=== PATIENT | female | born 1990 | race Caucasian/White ===

== ENCOUNTER 2019-08-21 22:26 | Emergency (ER) | payer OTHER ==
[2019-08-21 22:45] VITALS: BMI 29.8
[2019-08-21 23:21] VITALS: TEMP 98.1
--- NOTE | 2019-08-21 23:50 | PDOC ---
History of Present Illness - General Chief Complaint: Shortness of Breath Stated Complaint: S.O.B Time Seen by Provider: 08/21/19 22:49 History Source: Patient Exam Limitations: Language Barrier - History of Present Illness Initial Comments: 08/23/19 06:38 HPI: 29F w/o PMH presenting with 1 week of episodic sob and palpitations that occur with light activity (playing w/ her children) and resolve on their own. Coming into ED today because symptoms lasted longer than usual. Pt unable to exactly quantify the length of symptoms but state they last minutes. Was seen by her PCP regarding these symptoms 2 days ago, lab work sent off, and was told she would receive a call if any pertinent labs. Endorses chills today. Denies fevers , lightheadedness, dizziness, numbness, tingling, weakness, n/v. Recently received IM control. No OCP, no surgeries, no recent immobilization, no travel, no calf pain or swelling, and no hx VTE. Past History - Past Medical History Allergies/Adverse Reactions: Allergies Allergy/AdvReac Type Severity Reaction Status Date / Time No Known Allergies Allergy Verified 08/21/19 22:45 Home Medications: Ambulatory Orders NK [No Known Home Medication] 08/21/19 COPD: No Other medical history: pt denies - Psycho Social/Smoking Cessation Hx Smoking History: Never smoked Hx Alcohol Use: No Drug/Substance Use Hx: No Review of Systems - Review of Systems Able to Perform ROS?: Yes Comments:: 08/23/19 06:38 ROS: CONSTITUTIONAL: Denies F / C HEENT: Denies headache, lightheadedness, dizziness, changes in vision / hearing. RESP: Endorses SOB (CC). Denies cough CARD: Endorses palpitations. Denies chest pain GI: Endorses mild loss of appetite. Denies N / V / D, abdominal pain, inability to tolerate PO : Denies dysuria, frequency SKIN: Denies rashes NEURO: Denies numbness, tingling, weakness Is the patient limited Irish proficient: Yes *Physical Exam - Vital Signs Last Vital Signs Temp Pulse Resp BP Pulse Ox 98.1 F 92 H 20 116/68 100 08/21/19 23:20 08/21/19 23:20 08/21/19 22:35 08/21/19 23:20 08/21/19 23:20 - Physical Exam Comments: 08/23/19 06:38 PE: GEN: Well appearing, NAD, comfortable. AAOx3 HEENT: NC/AT, EOMI, PERRLA. No facial asymmetry. Moist mucous membranes. Normal voice. Supple neck w/ FROM CV: S1/S2, RRR, no m/r/g LUNG: CTAB, no wheezes, crackles, rales, rhonchi GI: soft, ndnt, +BS, no guarding, no rebound. No masses EXTREMITIES: No LE edema. No calf TTP. No obvious deformities of all extremities SKIN: warm, dry, normal turgor PSYCH: normal mood and affect NEURO: Moving all extremities well ED Treatment Course - LABORATORY CBC & Chemistry Diagram: 08/21/19 23:45 08/21/19 23:45 Medical Decision Making - Medical Decision Making 08/21/19 23:44 MDM: 29F c/o occasional sob and palpitations for 1 week. Currently asymptomatic, SaO2 100% RA. DDx - pAF, pSVT, Unlikely VTE. - CBC, CMP, TSH, - EKG - CXR 08/22/19 01:07 EKG 08/21/19 23:57 HR 88 VA 136 QTS 86 QTc 454 NSR labs reviewed, reassuring f/u CXR 08/22/19 02:07 CXR per ED team w/o pathology discharge home w/ PCP f/u Discharge - Discharge Information Problems reviewed: Yes Clinical Impression/Diagnosis: Palpitations Condition: Stable Disposition: HOME - Admission No - Follow up/Referral - Patient Discharge Instructions Patient Printed Discharge Instructions: DI for Palpitations Additional Instructions: You were seen in the Emergency Department. Your lab work, EKG, and chest x-ray did not indicate a medical emergency for your symptoms. Follow up with your Primary Care Doctor in the next 2-3 days regarding this ED visit. Immediately return to the Emergency Department if you experience any of the following: - worsening symptoms - chest pain - ANYTHING that concerns you Te vieron en el departamento de emergencias. Alas trabajo de laboratorio, electrocardiograma y radiografa de trax no indicaron brittney emergencia mdica para etelvina sntomas. Reuben un seguimiento con alas mdico de atencin primaria en los prximos 2-3 bowen con respecto a esta visita al [place]. Regrese de inmediato al Departamento de emergencias si experimenta alguno de los siguientes sntomas: - empeoramiento de los sntomas - Dolor de pecho - CUALQUIER COSA que te preocupe - Post Discharge Activity
[2019-08-22 00:19] LABS: BASO % 0.4 % (0-2.0); EOS % 0.4 % (0-4.5); HEMATOCRIT 36.6 % (32.4-45.2); HEMOGLOBIN 12.4 GM/dL (10.7-15.3); LYMPH % 25.9 % (8-40); MCH 28.4 pg (25.7-33.7); MCHC 33.9 g/dl (32.0-36.0); MEAN PLT VOLUME 8.2 fl (7.5-11.1); MONO % 7.5 % (3.8-10.2); NEUT % 65.8 % (42.8-82.8); PLATELET COUNT 303 K/MM3 (134-434); RBC 4.35 M/mm3 (3.60-5.2); RDW 13.9 % (11.6-15.6); WHITE BLOOD COUNT 11.1 K/mm3 (4.0-10.0)
[2019-08-22 00:25] LABS: EPI CELLS 16.9 /HPF (0-5/HPF); HYALINE CASTS 15 /lpf (0-8); PH,URINE 5.5 (5.0-8.0); URINE APPEARANCE CLOUDY; URINE BACTERIA 337.2 /hpf (NEGATIVE); URINE BILIRUBIN NEGATIVE (NEGATIVE); URINE COLOR YELLOW; URINE GLUCOSE (UA) NEGATIVE (NEGATIVE); URINE KETONE TRACE (NEGATIVE); URINE LEUK ESTERASE NEGATIVE (NEGATIVE); URINE NITRITE NEGATIVE (NEGATIVE); URINE PROTEIN TRACE (NEGATIVE); URINE RBC 6 /hpf (0-4); URINE WBC 9 /hpf (0-5)
[2019-08-22 00:41] LABS: BILIRUBIN,TOTAL 1.1 mg/dL (0.2-1); BLOOD UREA NITROGEN 12.9 mg/dL (7-18); CALCIUM 8.4 mg/dL (8.5-10.1); CREATININE 0.8 mg/dL (0.55-1.3); POTASSIUM 3.9 mmol/L (3.5-5.1); TOT PROT 7.7 g/dl (6.4-8.2)
--- NOTE | 2019-08-22 01:43 | PDOC ---
Documentation entered by Adina Fisher SCRIBE, acting as scribe for Pierre Sparrow MD. Pierre Sparrow MD: This documentation has been prepared by the karenibePhillip Lincy, SCRIBE, under my direction and personally reviewed by me in its entirety. I confirm that the documentation accurately reflects all work, treatment, procedures, and medical decision making performed by me. Attending Attestation - Resident Resident Name: Baljeet Krishna - ED Attending Attestation I have performed the following: I have examined & evaluated the patient, The case was reviewed & discussed with the resident, I agree w/resident's findings & plan, Exceptions are as noted - HPI HPI: 08/21/19 23:47 The patient is a 29-year-old female with no reported past medical history who presents to the emergency department with shortness of breath, palpitations, and chills for the past half hour. The patient reports the symptoms have been ongoing for the past week, decided to come in today because the symptoms lasted longer than before. The patient reports following up with PCP for the symptoms, where she had blood work done. The patient reports the office told her they would call if any Lab values were abnormal, denies receiving a call. The patient reports a recent Depo- progesterone control injection. Denies chest pain, nausea, vomiting. Allergies: NKDA - Physicial Exam PE: 08/22/19 01:41 You mind documented once or once patient is awake and alert, well-nourished, no distress normocephalic and atraumatic PERRLA, EOMI CTA no JVD RRR No lower extremity edema - Medical Decision Making 08/22/19 01:42 Patient is a 29-year-old female who presents with signs and symptoms of intermittent palpitations and shortness of breath that have now resolved. In the ER, patient is noted to be asymptomatic with normal stable vital signs. EKG reveals no evidence or signs of acute ischemia or dysrhythmia. CBC/CMP within normal limits. TSH is within normal limits. Chest x-ray reveals no evidence of infiltrate or effusion. At this time, patient is safe for outpatient follow-up with cardiology for further evaluation and treatment.
[2019-08-22 02:20] VITALS: BP 105/65; PULSE 89
--- NOTE | 2019-08-22 10:50 | EKG ---
Test Reason : Blood Pressure : / mmHG Vent. Rate : 088 BPM Atrial Rate : 088 BPM P-R Int : 136 ms QRS Dur : 086 ms QT Int : 376 ms P-R-T Axes : 070 046 041 degrees QTc Int : 454 ms NORMAL SINUS RHYTHM NORMAL ECG NO PREVIOUS ECGS AVAILABLE Confirmed by EAMON MARTINEZ MD ([id number]) on 08/22/2019 10:50:22 AM Referred By: Confirmed By:EAMON MARTINEZ MD
== END 2019-08-22 02:21 | disposition home or self-care (01) ==
LOC: JER 22:26
DX: R00.2 Palpitations (principal)
CPT/HCPCS: 36415; 71046-TC-FY; 80053; 81003; 84439; 84443; 84703; 85025; 87077; 87086; 93005; 93010; 99284-25

== ENCOUNTER 2022-07-23 12:49 | Emergency (ER) | payer OTHER ==
[2022-07-23 13:05] VITALS: BP 129/85; PULSE 88; RESP 20; TEMP 98.6; BMI 30.9
[2022-07-23] MEDS ORDERED: SODIUM CHLORIDE 0.9% 500 ML INFUS.BAG IV ONE (13:34)
[2022-07-23] MEDS ORDERED: METOCLOPRAMIDE HCL INJECTION 10 MG/2 ML VIAL IVPUSH ONE (13:34)
[2022-07-23] MEDS ORDERED: ACETAMINOPHEN 1000 MG/100 ML BAG IVPB ONE (13:37)
[2022-07-23] MEDS ORDERED: ACETAMINOPHEN INJECTION 100 ML IVPB ONE (13:59)
[2022-07-23] MEDS ORDERED: METOCLOPRAMIDE HCL INJECTION 10 MG/2 ML VIAL ONE (13:59)
[2022-07-23 16:07] LABS: URINE APPEARANCE CLEAR; URINE BILIRUBIN NEGATIVE (NEGATIVE); URINE COLOR YELLOW; URINE GLUCOSE (UA) NEGATIVE (NEGATIVE); URINE KETONE NEGATIVE (NEGATIVE); URINE LEUK ESTERASE NEGATIVE (NEGATIVE); URINE NITRITE NEGATIVE (NEGATIVE); URINE PROTEIN NEGATIVE (NEGATIVE); URINE UROBILINOGEN 0.2 mg/dL (0.2-1.0)
[2022-07-23 16:09] LABS: HCG,QUALITATIVE URINE Negative
== END 2022-07-23 15:52 | disposition home or self-care (01) ==
LOC: JER 12:49
PROC: 3E033GC Introduction of Other Therapeutic Substance into Peripheral Vein, Percutaneous Approach (ICD-10-PCS; principal; 2022-07-23)
DX: J32.9 Chronic sinusitis, unspecified (principal)
CPT/HCPCS: 70450-TC; 70486-TC; 81003; 84703; 99285-25

== ENCOUNTER 2022-10-11 21:20 | Emergency (ER) | payer OTHER ==
[2022-10-11 21:34] VITALS: BP 124/77; PULSE 90; RESP 18; TEMP 98.1; BMI 34.2
[2022-10-11] MEDS ORDERED: MAG HYDROX/AL HYDROX/SIMETH -MYLANTA- ORAL SUSPENSION PO ONE (22:18)
[2022-10-11] MEDS ORDERED: IBUPROFEN 600 MG TABLET (FP) PO ONE ×2 (22:18→22:21)
[2022-10-11] MEDS ORDERED: MAG HYDROX/AL HYDROX/SIMETH 30 ML UNIT-DOSE CUP ONE (22:22)
== END 2022-10-11 23:21 | disposition home or self-care (01) ==
LOC: JER 21:20
DX: R07.89 Other chest pain (principal); K21.9 Gastro-esophageal reflux disease without esophagitis
CPT/HCPCS: 71046-TC-FY; 93005; 93010; 99284-25

== ENCOUNTER 2023-10-17 08:20 | Inpatient (IN) | payer OTHER ==
[2023-10-17] MEDS ORDERED: ELECTROLYTE-148 SOLN 1,000 ML IV SCH (08:45)
[2023-10-17 09:16] LABS: BASO % 0.3 % (0-2.0); EOS % 0.2 % (0-4.5); HEMATOCRIT 36.5 % (32.4-45.2); HEMOGLOBIN 12.1 GM/dL (10.7-15.3); LYMPH % 35.8 % (8-40); MCH 27.8 pg (25.7-33.7); MCHC 33.3 g/dl (32.0-36.0); MEAN CELL VOLUME 83.5 fl (80-96); MEAN PLT VOLUME 10.2 fl (7.5-11.1); MONO % 4.4 % (3.8-10.2); NEUT % 59.3 % (42.8-82.8); PLATELET COUNT 153 10^3/uL (134-434); RBC 4.37 M/mm3 (3.60-5.2); RDW 15.4 % (11.6-15.6); WHITE BLOOD COUNT 8.4 K/mm3 (4.0-10.0)
[2023-10-17 09:25] LABS: INR 1.01 (0.83-1.09); PROTHROMBIN TIME (PATIENT) 11.7 SEC (9.7-13.0)
[2023-10-17 09:35] LABS: POTASSIUM 3.7 mmol/L (3.5-5.1)
[2023-10-17 09:37] LABS: BLOOD UREA NITROGEN 5.5 mg/dL (7-18)
[2023-10-17 09:40] LABS: CREATININE 0.5 mg/dL (0.55-1.3)
[2023-10-17 10:13] VITALS: BMI 32.3
[2023-10-17] MEDS ORDERED: OXYTOCIN 30 UNITS in 0.9% NS 30 UNIT/500 ML INFUS.BAG IVPB SCH (10:15)
[2023-10-17] MEDS ORDERED: FENTANYL/BUPIVACAINE/NS/PF - PCEA - 50 ML DISP.SYRIN EP ONE ×3 (11:54→20:55)
[2023-10-17] MEDS ORDERED: FENTANYL/BUPIVACAINE/NS/PF - PCEA - 50 ML DISP.SYRIN EP SCH (12:20)
[2023-10-17] MEDS ORDERED: NALOXONE HCL 0.4 MG/ML VIAL IVPUSH PRN (12:36)
[2023-10-17] MEDS: FENTANYL/BUPIVACAINE/NS/PF - PCEA - 50 ML DISP.SYRIN EP SCH ×2 (17:15→20:55)
[2023-10-17] MEDS ORDERED: OXYTOCIN 20 UNITS in 0.9% NS 20 UNIT/1,000 ML INFUS.BAG IV ONE (19:19)
[2023-10-17] MEDS ORDERED: LIDOCAINE HCL/PF 2% SDV 5ML VIAL ONE ×2 (20:28→21:58)
[2023-10-17] MEDS ORDERED: FENTANYL CITRATE/PF 50 MCG/ML VIAL ONE ×2 (20:28→21:57)
[2023-10-17] MEDS ORDERED: SODIUM CHLORIDE 0.9% P/F 10 ML VIAL IJ ONE ×2 (20:28→21:58)
[2023-10-17] MEDS ORDERED: morphine SULFATE/PF 1 MG/2 ML (2cc Syringe - QUVA) ONE (21:57)
[2023-10-17] MEDS ORDERED: OXYTOCIN 10 UNITS/ML VIAL ONE (21:58)
[2023-10-17] MEDS ORDERED: DEXAMETHASONE SOD PHOSPHATE 4 MG/1 ML VIAL ONE (21:58)
[2023-10-17] MEDS ORDERED: ONDANSETRON 4 MG/2 ML VIAL ONE (21:58)
[2023-10-17] MEDS ORDERED: METOCLOPRAMIDE HCL INJECTION 10 MG/2 ML VIAL ONE (21:58)
[2023-10-17] MEDS ORDERED: KETOROLAC TROMETHAMINE 30 MG/1 ML VIAL ONE (21:58)
[2023-10-17] MEDS ORDERED: ceFAZolin SODIUM 1 GM VIAL ONE (21:58)
[2023-10-17] MEDS ORDERED: EPINEPHrine/PF 1 MG/1 ML (1:1,000) AMPULE ONE (21:58)
[2023-10-17] MEDS: OXYTOCIN 20 UNITS in 0.9% NS 20 UNIT/1,000 ML INFUS.BAG IV SCH (22:40)
[2023-10-17] MEDS ORDERED: ACETAMINOPHEN 1000 MG/100 ML BAG IVPB PRN (23:24)
[2023-10-17] MEDS ORDERED: IBUPROFEN 800 MG/8 ML IJ IVPB PRN (23:24)
[2023-10-18] MEDS ORDERED: METHYLERGONOVINE MALEATE 0.2 MG/1 ML AMP IM PRN (00:09)
[2023-10-18] MEDS ORDERED: ACETAMINOPHEN 325 MG TABLET (FP) PO PRN (00:09)
[2023-10-18] MEDS: OXYTOCIN 20 UNITS in 0.9% NS 20 UNIT/1,000 ML INFUS.BAG IV SCH (06:05)
[2023-10-18] MEDS: PRENATAL VITAMINS W/ FOLIC ACID TABLET (FP) PO SCH (09:50)
[2023-10-18] MEDS ORDERED: oxyCODONE HCL 5 MG TABLET PO PRN (12:09)
[2023-10-18] MEDS: SIMETHICONE 80 MG TAB.CHEW (FP) PO PRN (18:10)
[2023-10-18] MEDS: IBUPROFEN 600 MG TABLET (FP) PO PRN (19:38)
[2023-10-19] MEDS ORDERED: BISACODYL 10 MG SUPP.RECT RC PRN (00:09)
[2023-10-19] MEDS: IBUPROFEN 600 MG TABLET (FP) PO PRN ×4 (04:54→20:49)
[2023-10-19] MEDS: SIMETHICONE 80 MG TAB.CHEW (FP) PO PRN ×4 (04:54→20:49)
[2023-10-19 08:46] LABS: BASO % 0.2 % (0-2.0); HEMATOCRIT 25.6 % (32.4-45.2); HEMOGLOBIN 8.6 GM/dL (10.7-15.3); LYMPH % 25.2 % (8-40); MCH 28.3 pg (25.7-33.7); MCHC 33.4 g/dl (32.0-36.0); MEAN CELL VOLUME 84.6 fl (80-96); MEAN PLT VOLUME 9.5 fl (7.5-11.1); NEUT % 67.6 % (42.8-82.8); PLATELET COUNT 142 10^3/uL (134-434); RBC 3.03 M/mm3 (3.60-5.2); RDW 15.5 % (11.6-15.6); WHITE BLOOD COUNT 11.5 K/mm3 (4.0-10.0)
[2023-10-19] MEDS: PRENATAL VITAMINS W/ FOLIC ACID TABLET (FP) PO SCH (10:33)
[2023-10-20] MEDS: SIMETHICONE 80 MG TAB.CHEW (FP) PO PRN (05:12)
[2023-10-20] MEDS: IBUPROFEN 600 MG TABLET (FP) PO PRN ×2 (05:12→09:23)
[2023-10-20] MEDS: PRENATAL VITAMINS W/ FOLIC ACID TABLET (FP) PO SCH (09:23)
[2023-10-20 12:06] VITALS: BP 110/69; PULSE 90; RESP 16; TEMP 98.8
== END 2023-10-20 12:45 | disposition home or self-care (01) | DRG 540 ==
LOC: JLDR 08:20 → J3W 10-18 02:26
PROVIDERS: ADMIT Obstetrics & Gynecology; ATTEND Obstetrics & Gynecology
PROC: 10D00Z1 Extraction of Products of Conception, Low, Open Approach (ICD-10-PCS; principal; 2023-10-17)
PROC: 10907ZC Drainage of Amniotic Fluid, Therapeutic from Products of Conception, Via Natural or Artificial Opening (ICD-10-PCS; 2023-10-17)
DX: O62.1 Secondary uterine inertia (principal); O48.0 Post-term pregnancy; O61.1 Failed instrumental induction of labor; Z3A.41 41 weeks gestation of pregnancy; Z37.0 Single live birth; Z86.59 Personal history of other mental and behavioral disorders
CPT/HCPCS: 36415; 80048; 85025; 85610; 85730; 86780; 86850; 86900; 86901; 88307-TC

== ENCOUNTER 2023-11-11 17:33 | Emergency (ER) | payer OTHER ==
[2023-11-11 17:49] VITALS: TEMP 98.1; BMI 32.8
[2023-11-11 18:37] LABS: BASO % 0.5 % (0-2.0); EOS % 0.7 % (0-4.5); HEMATOCRIT 35.2 % (32.4-45.2); LYMPH % 42.3 % (8-40); MCH 27.6 pg (25.7-33.7); MEAN CELL VOLUME 81.3 fl (80-96); MEAN PLT VOLUME 7.8 fl (7.5-11.1); MONO % 5.8 % (3.8-10.2); NEUT % 50.7 % (42.8-82.8); PLATELET COUNT 319 10^3/uL (134-434); RBC 4.33 M/mm3 (3.60-5.2); RDW 14.9 % (11.6-15.6); WHITE BLOOD COUNT 7.4 K/mm3 (4.0-10.0)
[2023-11-11 18:43] LABS: EPI CELLS 18 /uL (0-25.1); HYALINE CASTS 0 /uL (0-3.1); URINE APPEARANCE CLEAR; URINE BACTERIA 72 /uL (0-1359); URINE BILIRUBIN NEGATIVE (NEGATIVE); URINE COLOR YELLOW; URINE GLUCOSE (UA) NEGATIVE (NEGATIVE); URINE KETONE NEGATIVE (NEGATIVE); URINE LEUK ESTERASE TRACE (NEGATIVE); URINE NITRITE NEGATIVE (NEGATIVE); URINE PROTEIN NEGATIVE (NEGATIVE); URINE RBC 10 /uL (0-23.9); URINE UROBILINOGEN 0.2 mg/dL (0.2-1.0); URINE WBC 13 /uL (0-25.8)
[2023-11-11 18:51] LABS: HCG,QUALITATIVE URINE Negative
[2023-11-11 18:57] LABS: POTASSIUM 3.9 mmol/L (3.5-5.1)
[2023-11-11 18:59] LABS: ALBUMIN 3.7 g/dl (3.4-5.0); BLOOD UREA NITROGEN 12.8 mg/dL (7-18); CALCIUM 8.4 mg/dL (8.5-10.1)
[2023-11-11 19:02] LABS: CREATININE 0.6 mg/dL (0.55-1.3)
[2023-11-11 19:04] LABS: BILIRUBIN,TOTAL 0.7 mg/dL (0.2-1); TOT PROT 7.7 g/dl (6.4-8.2)
[2023-11-11] MEDS ORDERED: ACETAMINOPHEN 1000 MG/100 ML BAG IVPB ONE (20:00)
[2023-11-11] MEDS ORDERED: SODIUM CHLORIDE 0.9% 500 ML INFUS.BAG IV ONE (20:00)
[2023-11-11] MEDS ORDERED: MAG HYDROX/AL HYDROX/SIMETH 30 ML UNIT-DOSE CUP PO ONE (20:02)
[2023-11-11] MEDS ORDERED: FAMOTIDINE 20 MG TABLET PO ONE (20:02)
[2023-11-11] MEDS ORDERED: ACETAMINOPHEN INJECTION 100 ML IVPB ONE (20:09)
[2023-11-11] MEDS ORDERED: MAG HYDROX/AL HYDROX/SIMETH 30 ML UNIT-DOSE CUP ONE (20:09)
[2023-11-11] MEDS ORDERED: FAMOTIDINE 20 MG TABLET ONE (20:09)
[2023-11-12 00:17] VITALS: BP 152/86; PULSE 62; RESP 16
== END 2023-11-12 00:24 | disposition home or self-care (01) ==
LOC: JER 17:33
PROC: 3E033NZ Introduction of Analgesics, Hypnotics, Sedatives into Peripheral Vein, Percutaneous Approach (ICD-10-PCS; principal; 2023-11-11)
DX: M54.6 Pain in thoracic spine (principal); R10.13 Epigastric pain
CPT/HCPCS: 36415; 74177-TC; 80053; 81003; 83690; 84703; 85025; 87086; 99285-25; J0131; Q9967

== ENCOUNTER 2024-04-01 04:17 | Day surgery (SDC) | payer OTHER ==
[2024-03-29 17:20] VITALS: BMI 34.0
[2024-04-01] MEDS ORDERED: ONDANSETRON 4 MG/2 ML VIAL ONE (07:29)
[2024-04-01] MEDS ORDERED: ROCURONIUM BROMIDE 50 MG/5 ML SYRINGE ONE (07:29)
[2024-04-01] MEDS ORDERED: DEXAMETHASONE SOD PHOSPHATE 4 MG/1 ML VIAL ONE (07:29)
[2024-04-01] MEDS ORDERED: KETOROLAC TROMETHAMINE 30 MG/1 ML VIAL ONE (07:29)
[2024-04-01] MEDS ORDERED: LIDOCAINE HCL/PF 2% SDV 5ML VIAL ONE (07:29)
[2024-04-01] MEDS ORDERED: BUPIVACAINE HCL/PF 0.5% (5MG/ML) 10 ML VIAL ONE (07:31)
[2024-04-01] MEDS ORDERED: PROPOFOL 20 ML ONE ×2 (07:33→08:21)
[2024-04-01] MEDS ORDERED: oxyCODONE HCL 5 MG TABLET PO PRN (07:57)
[2024-04-01] MEDS ORDERED: ONDANSETRON 4 MG/2 ML VIAL IVPUSH PRN (07:57)
[2024-04-01] MEDS ORDERED: LACTATED RINGERS SOLUTION 1,000 ML IV SCH (08:00)
[2024-04-01] MEDS ORDERED: ACETAMINOPHEN INJECTION 100 ML IVPB ONE (08:07)
[2024-04-01] MEDS ORDERED: MIDAZOLAM HCL 2 MG/2 ML SINGLE DOSE VIAL ONE (08:10)
[2024-04-01] MEDS ORDERED: FENTANYL CITRATE/PF 50 MCG/ML VIAL ONE ×2 (08:12→08:55)
[2024-04-01] MEDS: BUPIVACAINE HCL/PF 0.5% (5 MG/ML) 30 ML VIAL IJ ONE ×2 (08:33)
[2024-04-01] MEDS ORDERED: SUGAMMADEX SODIUM 200 MG/2 ML VIAL ONE (08:54)
[2024-04-01 12:04] VITALS: BP 115/62; PULSE 104; RESP 18; TEMP 97.8
== END 2024-04-01 13:00 | disposition home or self-care (01) ==
LOC: JASU-SURG 04:17
PROVIDERS: ATTEND Student in an Organized Health Care Education/Training Program
PROC: 0UT74ZZ Resection of Bilateral Fallopian Tubes, Percutaneous Endoscopic Approach (ICD-10-PCS; principal; 2024-04-01 08:00)
DX: Z30.2 Encounter for sterilization (principal)
CPT/HCPCS: 81025; 88305-TC; 94760; J0131